=== PATIENT | male | born 1985 ===

== ENCOUNTER 2020-03-08 10:01 | Outpatient (CLI) | payer MEDICAID ==
[~2020-03-08] VITALS: Ht 180.3 cm; Wt 78.0 kg
[2020-03-08 10:19] VITALS: BP 116/69
[2020-03-08] MEDS ORDERED: FERROUS SULFAT325 MG ORAL (10:21)
--- NOTE | 2020-03-08 12:15 | Consultation ---
DATE OF CONSULTATION: 03/08/2020 CHIEF COMPLAINT: Rectal bleeding. PAST MEDICAL HISTORY: 1. History of colonic polyps. 2. Hemorrhoids. 3. Anemia. PAST SURGICAL HISTORY: None. MEDICATIONS: Iron. FAMILY HISTORY: Father had prostate cancer. Mom had breast cancer. SOCIAL HISTORY: The patient denies any alcohol, but smokes half pack per day. ALLERGIES: No known allergies. REVIEW OF SYSTEMS: Positive for constipation, rectal bleeding, rectal pain. PHYSICAL EXAMINATION: VITAL SIGNS: Temperature 97.4, blood pressure 114/69, pulse 71, respirations 20. HEENT: Normocephalic and atraumatic. Sclerae are anicteric. NECK: Supple. No evidence of obvious lymphadenopathy. CARDIOVASCULAR: Regular rate and rhythm. Plus S1, S2. LUNGS: Clear to auscultation bilaterally. ABDOMEN: Positive bowel sounds. Soft and nontender. No rebound. No guarding. No peritoneal sign. EXTREMITIES: No cyanosis. No clubbing. No edema. ASSESSMENT AND PLAN: This is a 34-year-old male with rectal bleeding. The patient apparently had colonoscopy recently at [facility], had two polyps. Colonoscopy was incomplete because of the poor prep, only up to the transverse colon was examined. On examination today, the patient has evidence of large external hemorrhoids. The patient was given Colace and MiraLAX for constipation. The patient was given Anusol-HC cream for external hemorrhoid, also was instructed to the sitz bath. The patient is to see a colorectal surgeon for external hemorrhoid treatment. In regard to his history of colonic polyps at age 34 and only partial colonoscopy, he needs repeat colonoscopy, which we are going to try to schedule. Rainer Mcdermott M.D. DR: Obed JOB#: [id number] CC:
== END 2020-03-08 12:01 | disposition home or self-care (01) ==
LOC: PAN 10:01
DX: K62.5 Hemorrhage of anus and rectum (principal); Z86.010 Personal history of colon polyps; F17.210 Nicotine dependence, cigarettes, uncomplicated; K59.00 Constipation, unspecified; K62.89 Other specified diseases of anus and rectum; K64.4 Residual hemorrhoidal skin tags
CPT/HCPCS: G0463